=== PATIENT | female | born 1950 | race Caucasian/White ===

== ENCOUNTER → 2020-04-15 09:58 | Outpatient (BNVA) | payer MEDICARE, SELFPAY | PROVIDERS: Family Provider Family Medicine; Visit Provider Family Medicine | DX: I10 Essential (primary) hypertension (principal); E78.5 Hyperlipidemia, unspecified | CPT/HCPCS: 80053; 80061; 82043; 85025 ==

== ENCOUNTER 2025-01-11 08:40 | Emergency (ER) | payer MEDICARE, SELFPAY ==
[2025-01-11 08:44] VITALS: BP 189/110; PULSE 109; RESP 18; TEMP 36.7; O2SAT 98; BMI 26.6
--- NOTE | 2025-01-11 09:03 | XR_ITS ---
WS: [id number] Exam: XR hip LT 2-3V wo/w pel* [id number] Date/Time of Exam: 01/11/2025 9:11 AM Reason For Exam: pain LEFT total hip prosthesis is in place. No sign of loosening or fracture. Normal soft tissues. XR/XR hip LT 2-3V wo/w pel* [id number] IMPRESSION: 1. Stable appearing LEFT total hip replacement.
--- NOTE | 2025-01-11 09:04 | ECG_ITS ---
[facility] Test Date: 2025-01-11 Pat Name: Kanchan Mayorga Department: Room: Gender: Female Card Doffer: : 1950 Requested By: Jayden Lock Order Number: [id number] Zaira MD: Kirstin Maldonado M.D. Measurements Intervals Clements Rate: 119 P: 0 CT: 0 QRS: -20 QRSD: 113 T: 114 QT: 339 QTc: 477 Interpretive Statements ATRIAL FIBRILLATION WITH RAPID VENTRICULAR RESPONSE MODERATE INTRAVENTRICULAR CONDUCTION DELAY [110+ ms QRS DURATION] ST DEVIATION AND MODERATE T-WAVE ABNORMALITY, CONSIDER LATERAL ISCHEMIA [-0.1+ mV T-WAVE IN I/aVL/V5/V6] Compared to ECG 06/27/2019 13:31:26 Intraventricular conduction delay now present Possible ischemia now present Sinus rhythm no longer present First degree AV block no longer present T-wave abnormality still present Electronically Signed On 01-11-2025 10:34:31 CDT by Kirstin Maldonado M.D. [email or web address]
--- NOTE | 2025-01-11 09:04 | W.ED.EXTPRO ---
HPI - Extremity Problem General: Chief complaint: Extremity Injury, Lower Stated complaint: lt hip inj Time Seen by Provider: 01/11/25 08:56 History of Present Illness: 74-year-old female presents emergency room with complaint of left hip pain after a ground-level mechanical fall. She fell 2 days ago she previously had a left hip arthroplasty is complaining of pain in that hip. She has been able to ambulate, but reports it is painful. She denies any other injury after the fall. She does have a history of atrial fibrillation she tells me she was previously on anticoagulant but it was stopped because of cost and she was switched to aspirin. She is normally on metoprolol but she did not take her medicines this morning because she came to the emergency room. Associated symptoms: Deny chest pain, fever(s) or rash Related Data Home Medications ?Medication ?Instructions ?Recorded ?Confirmed atorvastatin 10 mg tablet 10 mg PO BEDTIME 01/11/25 01/11/25 metoprolol succinate 25 mg 25 mg PO DAILY 01/11/25 01/11/25 tablet,extended release 24 hr triamcinolone acetonide 0.1 % 1 applic topical BID 01/11/25 01/11/25 topical cream Previous Rx's ?Medication ?Instructions ?Recorded diclofenac sodium 75 mg 75 mg PO Q12H PRN pain #20 tabs 01/11/25 tablet,delayed release Allergies Allergy/AdvReac Type Severity Reaction Status Date / Time Penicillins AdvReac Mild unknown Verified 06/24/24 11:31 Review of Systems Const: Denies: fever(s) or chills Card: Denies: chest pain Resp: Denies: dyspnea GI: Denies: abdominal pain : Denies: dysuria, urinary frequency or urinary urgency Musc: Reports: joint pain; Denies: neck pain or back pain Skin/Breast: Denies: rash PFSH ED PFSH: Medical History Dyslipidemia Essential hypertension Eczema History of bilateral breast cancer Surgical History H/O mastectomy History of left hip replacement H/O: hysterectomy History of bunionectomy Family History Other CAD (coronary artery disease) Cancer Diabetes Social History Smoking and tobacco/nicotine status: never used tobacco/nicotine Alcohol intake: never Substance/Drug Use: current Substance/Drug use frequency: daily Physical Exam Const: COMMON NORMALS: no acute distress GENERAL APPEARANCE: cooperative and comfortable ORIENTATION/CONSCIOUSNESS: Yes awake, Yes oriented to person, Yes oriented to place and Yes oriented to time HENMT: COMMON NORMALS: normocephalic, atraumatic and hearing grossly normal bilaterally HEAD & SCALP: normocephalic and atraumatic Resp: COMMON NORMALS: normal respiratory effort, No retractions, No use of accessory muscles and clear to auscultation bilaterally AUSCULTATION: clear to auscultation bilaterally Cardio: RATE: tachycardic RHYTHM: abnormal rhythm irregularly irregular GI: COMMON NORMALS: Soft to palpation and No hepatosplenomegaly present AUSCULTATION: Yes normoactive bowel sounds PALPATION: Yes Soft to palpation, No Tenderness to palpation present (GI), No Guarding due to palpation present (GI) and Yes No hepatosplenomegaly present Extremity: COMMON NORMALS: normal to inspection, capillary refill normal, no clubbing, cyanosis or edema, no calf tenderness and no pedal edema Neuro: SENSORIUM/ORIENTATION: Yes oriented to person, Yes oriented to place and Yes oriented to time Skin: COMMON NORMALS: no rashes or lesions noted GENERAL SKIN EXAM: no rashes or lesions noted Course Vital Signs: Vital signs: Vital Signs Temperature 98.0 F 01/11/25 08:44 Pulse Rate 116 H 01/11/25 11:15 Respiratory Rate 18 01/11/25 08:44 Blood Pressure 160/117 01/11/25 11:15 Pulse Oximetry 97 01/11/25 11:15 Oxygen Delivery Me thod Room Air 01/11/25 09:23 MDM - Extremity (Nontraumatic) Medical Decision Making Imaging reviewed no acute fracture. Patient has a point tenderness over the greater trochanter and posterior suspect this is due to soft tissue injury from the fall. She also had some A-fib with RVR because she had not taken her regular home meds before she first came into give her 2.5 IV metoprolol and gave her usual dose of oral metoprolol which she tolerated well rate is well-controlled at this point. Will discharge patient home diclofenac to use as needed follow-up with her primary care doctor. Medical Records I reviewed the patient's medical records. Lab Data I reviewed the patient's lab results. Radiology Impressions Hip/Pelvis X-Ray 01/11/25 09:03 IMPRESSION: 1. Stable appearing LEFT total hip replacement. Pelvis X-Ray 01/11/25 09:37 IMPRESSION: 1. No pelvic fracture or other significant finding. Degenerative changes. All radiology interpretation(s) finalized by discharge Discharge Plan Discharge Patient Disposition: Home Clinical Impression: Contusion of hip, left, Atrial fibrillation Condition: Stable Prescriptions: New diclofenac sodium 75 mg tablet,delayed release (DR/EC) 75 mg PO Q12H PRN (Reason: pain) Qty: 20 0RF No Action atorvastatin 10 mg tablet 10 mg PO BEDTIME triamcinolone acetonide 0.1 % cream 1 applic TOPICAL BID metoprolol succinate 25 mg tablet extended release 24 hr 25 mg PO DAILY Discharge Orders: Discharge ED (Routine); Ordered 01/11/25 Ordered By: Jayden Farnsworth Referrals: Zen Case MD [Primary Care Provider] - Discharge Diet: Usual diet Discharge Activity: Resume usual activity Patient Instructions: Opioid Safety, Pain Management Activity Restrictions/Additional Instructions: Thank you for choosing [facility] for your healthcare needs today. It is very important that you follow up as instructed or that you return to the Emergency Department should you have concerns or if your condition changes or worsens in any way. You were seen in the emergency room with complaints of hip pain after a fall x-ray of your left hip and pelvis did not show any acute fractures. Recommend that you use the anti-inflammatories diclofenac as needed. You were given a dose of your morning medication for control of your atrial fibrillation. Follow-up with your primary care doctor. Print Language: Chinese Coding Level of Care Code ED Residential Nurse for Nanda Pacheco
[2025-01-11 09:23] VITALS: BP 174/114; PULSE 98; O2SAT 94
[2025-01-11] MEDS: metoprolol succinate ER (24 HR) 25 mg Tablet PO (09:23)
[2025-01-11] MEDS: metoprolol tartrate 1 mg/1 mL SDV 5 mL 2.5 MG IVP (09:23)
--- NOTE | 2025-01-11 09:37 | XR_ITS ---
WS: [id number] Exam: XR pelvis 1-2V* [id number] Date/Time of Exam: 01/11/2025 9:45 AM Reason For Exam: pain No pelvic fracture. SI joint DJD noted. Soft tissues are unremarkable. LEFT total hip replacement. 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 XR/XR pelvis 1-2V* [id number] IMPRESSION: 1. No pelvic fracture or other significant finding. Degenerative changes.
[2025-01-11] MEDS: ketorolac 30 mg/mL INJ IVP (09:44)
--- NOTE | 2025-01-11 09:55 | PC.NURSE ---
PATIENT AMBULATED TO RESTROOM. PATIENT STATES PAIN INCREASED DUE TO AMBULATION AND XR.
[2025-01-11 11:15] VITALS: BP 160/117; PULSE 116; O2SAT 97
== END 2025-01-11 11:16 | disposition home or self-care (01) ==
PROVIDERS: Emergency Provider Family Medicine; PCP Family Medicine
DX: S70.02XA Contusion of left hip, initial encounter (principal); I48.91 Unspecified atrial fibrillation; E78.5 Hyperlipidemia, unspecified; I10 Essential (primary) hypertension; Z85.3 Personal history of malignant neoplasm of breast; W19.XXXA Unspecified fall, initial encounter
CPT/HCPCS: 72170; 73502; 93005; 96374; 96375; 99284; J1885; J3490; J9999